=== PATIENT | male | born 1965 | race Caucasian/White ===

== ENCOUNTER 2016-06-04 09:57 | Emergency (ER) | payer OTHER ==
[2016-06-04] MEDS ORDERED: LORATADINE-PSEUDOEPH 5-120 MG 1 EACH TAB.ER.12H PO STA (10:37)
[2016-06-04] MEDS ORDERED: IBUPROFEN 600 MG TAB PO STA (10:37)
[2016-06-04] MEDS ORDERED: BENZONATATE 100 MG CAP PO STA (10:37)
[2016-06-04] MEDS ORDERED: Acetaminophen-Codeine 300-30mg TAB PO STA (10:37)
--- NOTE | 2016-06-04 11:03 | XR ---
EXAMINATION TYPE: XR chest 2V DATE OF EXAM: 06/04/2016 10:48 AM COMPARISON: Chest x-ray July 31, 2013 HISTORY: Cough and congestion. TECHNIQUE: Frontal and lateral views of the chest are obtained. FINDINGS: Somewhat low lung volumes are present. There is no focal air space opacity, pleural effusi on, or pneumothorax seen. The cardiac silhouette size is upper limits of normal. The osseous struc tures are intact. IMPRESSION: No suspicious focal infiltrate is present.
[2016-06-04] MEDS ORDERED: IPRATROPIUM-ALBUTEROL 3 ML NEB INHALATION STA (11:05)
[2016-06-04] MEDS ORDERED: AZITHROMYCIN 500 MG TAB PO STA (11:06)
--- NOTE | 2016-06-04 11:09 | ED ---
General Adult HPI - General Chief complaint: Upper Respiratory Infection Stated complaint: congestion Time Seen by Provider: 06/04/16 10:23 Source: patient, RN notes reviewed, old records reviewed Mode of arrival: ambulatory Limitations: no limitations - History of Present Illness Initial comments: This is a 51-year-old male the ER for evaluation. This patient presents for evaluation of cough, upper respiratory infection, patient has productive cough and congestion. Mild shortness of breath. Constant coughing fits. Patient has history of smoking, no formal diagnosis of COPD. No no prior hospitalizations for similar issues. Patient denies fever at home, cough is productive. Patient has no sick contacts or travel history. No chest - Related Data Home Medications Medication Instructions Recorded Confirmed Aspirin 81 mg PO DAILY 06/04/16 06/04/16 Atorvastatin Calcium [Lipitor] 40 mg PO DAILY 06/04/16 06/04/16 Metoprolol Succinate (ER) [Toprol 50 mg PO DAILY 06/04/16 06/04/16 Xl] Omeprazole [PriLOSEC] 20 mg PO AC-BID 06/04/16 06/04/16 Previous Rx's Medication Instructions Recorded Albuterol Sulfate [Proair Hfa] 1 - 2 puff INHALATION Q4H PRN #1 06/04/16 inhaler Azithromycin [Zithromax Z-pack] 0 mg PO DIRECTED #6 tab 06/04/16 Benzonatate [Tessalon Perles] 100 mg PO TID #30 cap 06/04/16 Allergies Allergy/AdvReac Type Severity Reaction Status Date / Time No Known Allergies Allergy Verified 06/04/16 10:05 Review of Systems ROS Statement: Those systems with pertinent positive or pertinent negative responses have been documented in the HPI. ROS Other: All systems not noted in ROS Statement are negative. Past Medical History Past Medical History: CVA/TIA, Hyperlipidemia, Hypertension History of Any Multi-Drug Resistant Organisms: None Reported Past Surgical History: No Surgical Hx Reported Past Psychological History: No Psychological Hx Reported Smoking Status: Current every day smoker Past Alcohol Use History: None Reported Past Drug Use History: None Reported General Exam Limitations: no limitations General appearance: alert, in no apparent distress Head exam: Present: atraumatic, normocephalic, normal inspection Eye exam: Present: normal appearance, PERRL, EOMI. Absent: scleral icterus, conjunctival injection, periorbital swelling ENT exam: Present: normal exam, mucous membranes moist Neck exam: Present: normal inspection. Absent: tenderness, meningismus, lymphadenopathy Respiratory exam: Present: normal lung sounds bilaterally. Absent: respiratory distress, wheezes, rales, rhonchi, stridor Cardiovascular Exam: Present: regular rate, normal rhythm, normal heart sounds. Absent: systolic murmur, diastolic murmur, rubs, gallop, clicks GI/Abdominal exam: Present: soft, normal bowel sounds. Absent: distended, tenderness, guarding, rebound, rigid Extremities exam: Present: normal inspection, full ROM, normal capillary refill. Absent: tenderness, pedal edema, joint swelling, calf tenderness Back exam: Present: normal inspection Neurological exam: Present: alert, oriented X3, CN II-XII intact Psychiatric exam: Present: normal affect, normal mood Skin exam: Present: warm, dry, intact, normal color. Absent: rash Course Vital Signs 06/04/16 09:58 Temperature 97.7 F Pulse Rate 75 Respiratory 20 Rate Blood Pressure 146/86 O2 Sat by Pulse 99 Oximetry - Reevaluation(s) Reevaluation #1: 06/04/16 11:07 Patient's symptoms. Improved with control Reevaluation #2: 06/04/16 11:08 Patient is in no respiratory or respiratory distress Medical Decision Making - Medical Decision Making Male year with cough and congestion, upper respiratory infection and bronchitis. Patient given a breathing treatment, symptom control emergency room , feeling better okay for discharge home - Radiology Data Radiology results: report reviewed (Chest x-ray two-view is negative for pneumonia), image reviewed Disposition Clinical Impression: Sinusitis, Upper respiratory infection, Asthmatic bronchitis Disposition: HOME SELF-CARE Condition: Good Instructions: Upper Respiratory Infection (ED), Acute Bronchitis (ED) Prescriptions: Albuterol Sulfate [Proair Hfa] 1 - 2 puff INHALATION Q4H PRN #1 inhaler PRN Reason: Shortness Of Breath Azithromycin [Zithromax Z-pack] 0 mg PO DIRECTED #6 tab Benzonatate [Tessalon Perles] 100 mg PO TID #30 cap Referrals: Justin Stein DO [Primary Care Provider] - 1-2 days
[2016-06-04 11:36] VITALS: BP 130/87; PULSE 68; RESP 18; TEMP 98
== END 2016-06-04 11:36 | disposition home or self-care (01) ==
LOC: EC 09:57
DX: J32.9 Chronic sinusitis, unspecified (principal); J45.909 Unspecified asthma, uncomplicated; J06.9 Acute upper respiratory infection, unspecified; I10 Essential (primary) hypertension; E78.5 Hyperlipidemia, unspecified; Z79.82 Long term (current) use of aspirin; Z79.899 Other long term (current) drug therapy; Z86.73 Personal history of transient ischemic attack (TIA), and cerebral infarction without residual deficits; F17.200 Nicotine dependence, unspecified, uncomplicated
CPT/HCPCS: 71020; 94640; 99284

== ENCOUNTER 2016-07-31 17:00 | Emergency (ER) | payer OTHER ==
[2016-07-31 17:16] VITALS: BP 143/97; PULSE 68; RESP 18; TEMP 98.2
[2016-07-31] MEDS ORDERED: TOBRAMYCIN 0.3% OPHTH DROPS 5 ML BTL LEFT EYE STA (17:22)
[2016-07-31] MEDS ORDERED: PROPARACAINE 0.5% OPHTH DROPS 15 ML BTL LEFT EYE STA (17:22)
--- NOTE | 2016-07-31 17:23 | ED ---
Eye Problem HPI - General Chief complaint: Eye Problems Stated complaint: Foreign Body-Left eye Time Seen by Provider: 07/31/16 17:12 Source: patient, RN notes reviewed Mode of arrival: ambulatory Limitations: no limitations - History of Present Illness Initial comments: 51-year-old male presents emergency Department chief complaint left eye irritation. Patient states that he felt something got his eyelid last night while working. 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 Patient states that he worked today and fell is still irritated. He did rinse his eye I'll try to get out any foreign body though he did not see one. Patient's tetanus is up-to- date last 5 years. Patient has no visual changes. Denies any blurred vision. Patient states his eyes is irritated, mild tearing. - Related Data Home Medications Medication Instructions Recorded Confirmed Aspirin 81 mg PO DAILY 06/04/16 06/04/16 Atorvastatin Calcium [Lipitor] 40 mg PO DAILY 06/04/16 06/04/16 Metoprolol Succinate (ER) [Toprol 50 mg PO DAILY 06/04/16 06/04/16 Xl] Omeprazole [PriLOSEC] 20 mg PO AC-BID 06/04/16 06/04/16 Previous Rx's Medication Instructions Recorded Acetaminophen with Codeine 1 tab PO Q4H PRN #20 tab 06/04/16 [Tylenol w/codeine #3] Albuterol Sulfate [Proair Hfa] 1 - 2 puff INHALATION Q4H PRN #1 06/04/16 inhaler Azithromycin [Zithromax Z-pack] 0 mg PO DIRECTED #6 tab 06/04/16 Benzonatate [Tessalon Perles] 100 mg PO TID #30 cap 06/04/16 Tobramycin [Tobrex 0.3% Ophth Soln] 1 drop LEFT EYE Q4HR #5 ml 07/31/16 Allergies Allergy/AdvReac Type Severity Reaction Status Date / Time No Known Allergies Allergy Verified 07/31/16 17:16 Review of Systems ROS Statement: Those systems with pertinent positive or pertinent negative responses have been documented in the HPI. ROS Other: All systems not noted in ROS Statement are negative. Past Medical History Past Medical History: CVA/TIA, Hyperlipidemia, Hypertension History of Any Multi-Drug Resistant Organisms: None Reported Past Surgical History: No Surgical Hx Reported Past Psychological History: No Psychological Hx Reported Smoking Status: Current every day smoker Past Alcohol Use History: None Reported Past Drug Use History: None Reported General Exam Limitations: no limitations General appearance: alert, in no apparent distress Head exam: Present: atraumatic, normocephalic, normal inspection Eye exam: Present: PERRL, EOMI, conjunctival injection. Absent: normal appearance, scleral icterus, periorbital swelling Pupils: Present: other (Foreseen dye and was limper used to evaluate the left eye there is a small corneal abrasion in the central region there is no foreign body noted patient had full relief of pain with proparacaine drops) ENT exam: Present: normal exam, normal oropharynx, mucous membranes moist, TM's normal bilaterally, normal external ear exam Neck exam: Present: normal inspection, full ROM. Absent: tenderness, meningismus, lymphadenopathy Respiratory exam: Present: normal lung sounds bilaterally. Absent: respiratory distress, wheezes, rales, rhonchi, stridor Cardiovascular Exam: Present: regular rate, normal rhythm, normal heart sounds. Absent: systolic murmur, diastolic murmur, rubs, gallop, clicks Neurological exam: Present: alert Skin exam: Present: warm, dry, intact, normal color. Absent: rash Course Vital Signs 07/31/16 17:15 Temperature 98.2 F Pulse Rate 68 Respiratory 18 Rate Blood Pressure 143/97 O2 Sat by Pulse 95 Oximetry Medical Decision Making - Medical Decision Making 51-year-old male presented for left eye irritation. Patient has a corneal abrasion. There is no foreign body noted. Patient will be given Tobrex eyedrops to go home with every 4 hours. Return parameters were discussed. Disposition Clinical Impression: Corneal abrasion Disposition: HOME SELF-CARE Condition: Stable Instructions: Corneal Abrasion (ED) Additional Instructions: Please return to the Emergency Department if symptoms worsen or any other concerns. Follow-up with senior insight manager if no improvement in 48 hours. Prescriptions: Tobramycin [Tobrex 0.3% Ophth Soln] 1 drop LEFT EYE Q4HR #5 ml Referrals: Justin Stein DO [Primary Care Provider] - 1-2 days Marcial Patricia MD [STAFF PHYSICIAN] - 1-2 days Time of Disposition: 17:23
== END 2016-07-31 17:54 | disposition home or self-care (01) ==
LOC: EC 17:00
DX: S05.02XA Injury of conjunctiva and corneal abrasion without foreign body, left eye, initial encounter (principal); E78.5 Hyperlipidemia, unspecified; I10 Essential (primary) hypertension; F17.200 Nicotine dependence, unspecified, uncomplicated; Z86.73 Personal history of transient ischemic attack (TIA), and cerebral infarction without residual deficits; Z79.82 Long term (current) use of aspirin; Z79.899 Other long term (current) drug therapy
CPT/HCPCS: 99283

== ENCOUNTER → 2017-09-05 | Outpatient (CLI) | payer MEDICARE, OTHER ==
--- NOTE | 2017-09-05 12:56 | EST ---
EXERCISE STRESS AGE: 52 SEX: M HT: 5'7" WT: 230 PROTOCOL: Freedom Stress Test STAGE: 4 DURATION OF EXERCISE: 9:30 HEART RATE REST: 70 BLOOD PRESSURE REST: 152/96 MAXIMUM HEART RATE ACHIEVED: 149 MAXIMUM BLOOD PRESSURE: 209/99 85% MPHR: 145 100% MPHR: 170 METS: 11.1 INDICATIONS: Chest pain. CLINICAL INFORMATION: STRESS DATA: Pretesting physical examination showed a heart rate of 70, pressure is 152/96 mmHg. Baseline EKG showed sinus mechanism. The patient exercised on the treadmill according to Freedom protocol for a total of 9 minutes and 30 seconds and achieved 11.1 METS. Max heart rate was 149, which is about 87% of maximum predicted heart rate. Maximum blood pressure was 209/99 mmHg. Clinically, the patient did not have any symptoms of chest pain or discomfort and the EKG did not show any significant ST or T-wave abnormalities consistent with ischemia. CONCLUSION: 1. Excellent exercise capacity. 2. Normal EKG in response to exercise. 3. Essentially normal stress test for the patient. MMODL / KAMILAHN: [id number] /
== END | disposition home or self-care (01) ==
LOC: RADNMMAIN 10:59
PROVIDERS: ATTEND Family Medicine Addiction Medicine
DX: I63.50 Cerebral infarction due to unspecified occlusion or stenosis of unspecified cerebral artery (principal); E78.5 Hyperlipidemia, unspecified
CPT/HCPCS: 93017

== ENCOUNTER 2018-10-15 18:54 | Emergency (ER) | payer MEDICARE ==
[2018-10-15 19:07] VITALS: RESP 18
--- NOTE | 2018-10-15 19:43 | ED ---
Extremity Problem HPI - General Chief complaint: Extremity Problem,Nontraumatic Stated complaint: Left leg swelling Time Seen by Provider: 10/15/18 19:24 Source: patient Mode of arrival: ambulatory Limitations: no limitations - History of Present Illness Initial comments: Patient is a 53-year-old male presenting to the ER with complaints of left lower leg pain and swelling x 2-3 days. Patient states he has been dealing with left bursitis on the tibia tuberosity but then he started noticing pain on the lateral aspect of the lower left leg. Upon inspection patient states he noticed bruising and swelling when compared to the right side. Patient has history of DVT and PE. Patient denies recent travels or trauma to the area. 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 Patient denies fever, chills, cough, shortness of breath. No other complaints at this time. - Related Data Home Medications Medication Instructions Recorded Confirmed Aspirin 81 mg PO DAILY 06/04/16 10/15/18 Atorvastatin Calcium [Lipitor] 40 mg PO DAILY 06/04/16 10/15/18 Metoprolol Succinate (ER) [Toprol 50 mg PO DAILY 06/04/16 10/15/18 Xl] Omeprazole 40 mg PO DAILY 10/15/18 10/15/18 Allergies Allergy/AdvReac Type Severity Reaction Status Date / Time No Known Allergies Allergy Verified 10/15/18 19:37 Review of Systems ROS Statement: Those systems with pertinent positive or pertinent negative responses have been documented in the HPI. ROS Other: All systems not noted in ROS Statement are negative. Past Medical History Past Medical History: CVA/TIA, Hyperlipidemia, Hypertension History of Any Multi-Drug Resistant Organisms: None Reported Past Surgical History: No Surgical Hx Reported Past Psychological History: No Psychological Hx Reported Smoking Status: Current every day smoker Past Alcohol Use History: None Reported Past Drug Use History: None Reported General Exam - General Exam Comments Initial Comments: GENERAL: Well-appearing, well-nourished and in no acute distress. HEAD: Atraumatic, normocephalic. EYES: Pupils equal round and reactive to light, extraocular movements intact, sclera anicteric, conjunctiva are normal. ENT: TMs normal, nares patent, oropharynx clear without exudates. Moist mucous membranes. NECK: Normal range of motion, supple without lymphadenopathy or JVD. LUNGS: Breath sounds clear to auscultation bilaterally and equal. No wheezes rales or rhonchi. HEART: Regular rate and rhythm without murmurs, rubs or gallops. ABDOMEN: Soft, nontender, normoactive bowel sounds. No guarding, no rebound. No masses appreciated. : Deferred EXTREMITIES: Left lower leg has bruising and edema to the lateral aspect. Painful to the touch. No erythema. Neurovascular intact. NEUROLOGICAL: Cranial nerves II through XII grossly intact. Normal speech, normal gait. PSYCH: Normal mood, normal affect. SKIN: Warm, Dry, normal turgor, no rashes or lesions noted. Limitations: no limitations Course Vital Signs 10/15/18 19:03 Temperature 98.3 F Pulse Rate 66 Respiratory 18 Rate Blood Pressure 138/101 O2 Sat by Pulse 97 Oximetry Medical Decision Making - Medical Decision Making Patient is a 53-year-old male complaining of left lower leg pain, swelling, bruising 2-3 days. 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 Patient does not recall any trauma or injury to his left leg. Patient reports history of DVT and PE. Doppler shows no acute DVTs in the left lower extremity. Patient was counseled on lower leg contusion. Patient will be discharged. Patient will follow up with PCP if symptoms continue. Case discussed with Dr. Braga. Disposition Clinical Impression: Contusion of left leg, Pain in left lower leg Disposition: HOME SELF-CARE Condition: Stable Instructions (If sedation given, give patient instructions): Contusion in Adults (ED) Additional Instructions: Please return to the Emergency Department if symptoms worsen or any other concerns. Ice, Motrin, compression, elevation. Follow up with PCP if symptoms continue. Is patient prescribed a controlled substance at d/c from ED?: No Referrals: Justin Stein DO [Primary Care Provider] - 1-2 days
--- NOTE | 2018-10-15 20:52 | US ---
EXAMINATION TYPE: US venous doppler duplex LE LT DATE OF EXAM: 10/15/2018 8:41 PM COMPARISON: NONE CLINICAL HISTORY: Pain. Pain SIDE PERFORMED: Left TECHNIQUE: The lower extremity deep venous system is examined utilizing real time linear array sonog dani with graded compression, doppler sonography and color-flow sonography. VESSELS IMAGED: External Iliac Vein (EIV) Common Femoral Vein Deep Femoral Vein Greater Saphenous Vein * Femoral Vein Popliteal Vein Small Saphenous Vein * Proximal Calf Veins (* superficial vessels) Left Leg: Negative for DVT No evidence of DVT left leg. IMPRESSION: Normal left leg duplex venous sonogram.
[2018-10-15 21:40] VITALS: BP 140/101; PULSE 53; TEMP 98.2
== END 2018-10-15 21:40 | disposition home or self-care (01) ==
LOC: EC 18:54
DX: S80.12XA Contusion of left lower leg, initial encounter (principal); M71.58 Other bursitis, not elsewhere classified, other site; E78.5 Hyperlipidemia, unspecified; I10 Essential (primary) hypertension; F17.200 Nicotine dependence, unspecified, uncomplicated; Z79.82 Long term (current) use of aspirin; Z79.899 Other long term (current) drug therapy; Z86.73 Personal history of transient ischemic attack (TIA), and cerebral infarction without residual deficits; Z86.718 Personal history of other venous thrombosis and embolism; Z86.711 Personal history of pulmonary embolism; X50.9XXA Other and unspecified overexertion or strenuous movements or postures, initial encounter
CPT/HCPCS: 99283

== ENCOUNTER 2019-12-10 08:17 | Emergency (ER) | payer MEDICARE ==
[2019-12-10 08:24] VITALS: TEMP 98.4
[2019-12-10] MEDS ORDERED: LIDOCAINE 5% PATCH TOPICAL STA (08:36)
--- NOTE | 2019-12-10 08:39 | ED ---
General Adult HPI - General Chief complaint: Abdominal Pain Stated complaint: Abd Pain Time Seen by Provider: 12/10/19 08:26 Source: patient Mode of arrival: ambulatory Limitations: no limitations - History of Present Illness Initial comments: Dictation was produced using [employer] dictation software. please excuse any grammatical, word or spelling errors. This patient was cared for during a federal and state declared state of emergency secondary to Covid 19 Chief Complaint: 54-year-old male with past medical history of stroke, dyslip idemia and hypertension presents with abdominal pain. History of Present Illness: 24-year-old male who presents to us for abdominal pain. Patient came to our hospital for second opinion. Yesterday he was seen at [facility] where he had a CT of his abdomen and pelvis performed. He was diagnosed with diverticulitis at that time. He was prescribed Augmentin. Patient states that he return back to [facility] because his pain has been persistent. He seen a different ER physician there today and was told that he has a pulled muscle. He abated his who urged patient to come to [facility] for another opinion. Patient has left lower quadrant abdominal pain. He states his pain is exacerbated with movements. The movements that make his pain worse is bending forward at the hips and turning in certain positions. Patient denies any nausea vomiting or abdominal pain. Denies any diarrhea. The ROS documented in this emergency department record has been reviewed and co nfirmed by me. Those systems with pertinent positive or negative responses have been documented in the HPI. All other systems are other negative and/or noncontributory. PHYSICAL EXAM: General Impression: Alert and oriented x3, not in acute distress HEENT: Normocephalic atraumatic, extra-ocular movements intact, pupils equal and reactive to light bilaterally, mucous membranes moist. Cardiovascular: Heart regular rate and rhythm Chest: Able to complete full sentences, no retractions, no tachypnea Abdomen: abdomen soft, tenderness to the left lower quadrant, non-distended, no organomegaly Musculoskeletal: Pulses present and equal in all extremities, no peripheral edema Motor: no focal deficits noted Neurological: CN II-XII grossly intact, no focal motor or sensory deficits noted Skin: Intact with no visualized rashes Psych: Normal affect and mood ED course: 54-year-old male presents with chief complaint of abdominal pain. As upon arrival are within acceptable limits. Some documentation was reviewed from [facility]. Patient was seen yesterday and today. There isnt much from documentation for yesterday's visit. Today's visit there was some documentation provided by the physician. patient is on a prescription for Augmentin that was provided to him yesterday. He had a CT that was done that showed moderate diverticulitis versus infarction of the omentum. Labs were finally received. Yesterday patient had CBC and metabolic panel with no acute processes. Computed tomography scan of the abdomen and pelvis was obtained. There was mild inflammatory change along the anterior margin of the left distal colon. Patient reevaluated at bedside and found to be stable medical condition. His labs are unremarkable. No leukocytosis. no gap acidosis. All the labs are within normal limits. Patient was counseled on with plan of action is. Patient told to take [id number] analgesia. He does not want any narcotics because he is a recovering addict. Patient told to follow-up with his primary care physician. - Related Data Home Medications Medication Instructions Recorded Confirmed Aspirin 81 mg PO DAILY 06/04/16 10/15/18 Atorvastatin Calcium [Lipitor] 40 mg PO DAILY 06/04/16 10/15/18 Metoprolol Succinate (ER) [Toprol 50 mg PO DAILY 06/04/16 10/15/18 Xl] Omeprazole 40 mg PO DAILY 10/15/18 10/15/18 Allergies Allergy/AdvReac Type Severity Reaction Status Date / Time No Known Allergies Allergy Verified 12/10/19 08:24 Review of Systems ROS Statement: Those systems with pertinent positive or pertinent negative responses have been documented in the HPI. ROS Other: All systems not noted in ROS Statement are negative. Past Medical History Past Medical History: CVA/TIA, Hyperlipidemia, Hypertension History of Any Multi-Drug Resistant Organisms: None Reported Past Surgical History: No Surgical Hx Reported Past Psychological History: No Psychological Hx Reported Smoking Status: Current every day smoker Past Alcohol Use History: None Reported Past Drug Use History: None Reported General Exam Limitations: no limitations Course Vital Signs 12/10/19 08:21 Temperature 98.4 F Pulse Rate 64 Respiratory 18 Rate Blood Pressure 164/109 O2 Sat by Pulse 97 Oximetry Medical Decision Making - Lab Data Result diagrams: 12/10/19 08:37 12/10/19 08:37 Lab Results 12/10/19 12/10/19 Range/Units 08:37 08:37 WBC 7.3 (3.8-10.6) k/uL RBC 5.09 (4.30-5.90) m/uL Hgb 15.5 (13.0-17.5) gm/dL Hct 46.3 (39.0-53.0) % MCV 91.0 (80.0-100.0) fL MCH 30.4 (25.0-35.0) pg MCHC 33.4 (31.0-37.0) g/dL RDW 12.9 (11.5-15.5) % Plt Count 166 (150-450) k/uL Neutrophils % 72 % Lymphocytes % 19 % Monocytes % 6 % Eosinophils % 1 % Basophils % 0 % Neutrophils # 5.3 (1.3-7.7) k/uL Lymphocytes # 1.4 (1.0-4.8) k/uL Monocytes # 0.4 (0-1.0) k/uL Eosinophils # 0.1 (0-0.7) k/uL Basophils # 0.0 (0-0.2) k/uL Sodium 138 (137-145) mmol/L Potassium 4.5 (3.5-5.1) mmol/L Chloride 105 (98-107) mmol/L Carbon Dioxide 26 (22-30) mmol/L Anion Gap 7 mmol/L BUN 15 (9-20) mg/dL Creatinine 0.85 (0.66-1.25) mg/dL Est GFR (CKD-EPI)AfAm >90 (>60 ml/min/1.73 sqM) Est GFR (CKD-EPI)NonAf >90 (>60 ml/min/1.73 sqM) Glucose 97 (74-99) mg/dL Calcium 9.2 (8.4-10.2) mg/dL Total Bilirubin 0.7 (0.2-1.3) mg/dL AST 25 (17-59) U/L ALT 29 (4-49) U/L Alkaline Phosphatase 100 (38-126) U/L Total Protein 6.7 (6.3-8.2) g/dL Albumin 4.4 (3.5-5.0) g/dL Lipase 60 (23-300) U/L Disposition Clinical Impression: Abdominal pain Disposition: HOME SELF-CARE Condition: Good Instructions (If sedation given, give patient instructions): Abdominal Pain (ED) Additional Instructions: Take 400mg of Motrin with 1000 mg of Tylenol in combination 3 times a day as needed for pain. these are [id number] medications that she could obtain from your local arm [facility] Is patient prescribed a controlled substance at d/c from ED?: No Referrals: Justin Stein DO [Primary Care Provider] - 1-2 days Time of Disposition: 09:20
[2019-12-10 08:54] LABS: Basophils % (A) 0 %; Eosinophils # (A) 0.1 k/uL (0-0.7); Eosinophils % (A) 1 %; HCT 46.3 % (39.0-53.0); HGB 15.5 gm/dL (13.0-17.5); Lymphocytes # (A) 1.4 k/uL (1.0-4.8); Lymphocytes % (A) 19 %; MCH 30.4 pg (25.0-35.0); MCHC 33.4 g/dL (31.0-37.0); Mean Platelet Volume 8.2; Monocytes # (A) 0.4 k/uL (0-1.0); Monocytes % (A) 6 %; Neutrophils # (A) 5.3 k/uL (1.3-7.7); Neutrophils % (A) 72 %; Platelet Count 166 k/uL (150-450); RBC 5.09 m/uL (4.30-5.90); RDW 12.9 % (11.5-15.5); WBC 7.3 k/uL (3.8-10.6)
[2019-12-10 09:05] LABS: ALT 29 U/L (4-49); AST 25 U/L (17-59); African American GFR (CKD) >90 (>60 ml/min/1.73 sqM); Albumin 4.4 g/dL (3.5-5.0); Alkaline Phosphatase 100 U/L (38-126); Anion Gap 7 mmol/L; Blood Urea Nitrogen 15 mg/dL (9-20); Calcium 9.2 mg/dL (8.4-10.2); Carbon Dioxide 26 mmol/L (22-30); Chloride 105 mmol/L (98-107); Glucose 97 mg/dL (74-99); Non-African American GFR(CKD) >90 (>60 ml/min/1.73 sqM); Potassium 4.5 mmol/L (3.5-5.1); Sodium 138 mmol/L (137-145); Total Bilirubin 0.7 mg/dL (0.2-1.3); Total Protein 6.7 g/dL (6.3-8.2)
[2019-12-10 09:29] VITALS: BP 133/86; PULSE 82; RESP 16
== END 2019-12-10 09:28 | disposition home or self-care (01) ==
LOC: EC 08:17
DX: R10.32 Left lower quadrant pain (principal); F17.200 Nicotine dependence, unspecified, uncomplicated; E78.5 Hyperlipidemia, unspecified; I10 Essential (primary) hypertension; Z79.899 Other long term (current) drug therapy; Z86.73 Personal history of transient ischemic attack (TIA), and cerebral infarction without residual deficits
CPT/HCPCS: 36415; 80053; 83690; 85025; 99284

== ENCOUNTER 2020-03-14 08:04 | Day surgery (SDC) | payer MEDICARE, OTHER ==
[~2020-03-14 08:04] MED LIST: LACTATED RINGERS 1,000 ML IV SCH; LIDOCAINE 1% (10MG/ML) FOR IV START INTRADERMA PRN
[2020-03-14] MEDS ORDERED: LACTATED RINGERS 1,000 ML IV ONE (08:23)
[2020-03-14 08:24] VITALS: TEMP 97.8
[2020-03-14] MEDS ORDERED: LIDOCAINE 1% INJ 10MG/ML (20 ML MDV) ONE (09:31)
[2020-03-14] MEDS ORDERED: PROPOFOL 10 MG/ML 20 ML VIAL IV ONE (09:31)
--- NOTE | 2020-03-14 09:57 | P.PCN ---
Date of Procedure: 03/14/20 Description of Procedure: BRIEF HISTORY: Patient is a 54-year-old male presenting for outpatient colonoscopy for screening for malignant neoplasm of the colon. No prior colonoscopy. No family history of colon cancer. He denies any change in bowel habits. PROCEDURE PERFORMED: Colonoscopy with polypectomy. PREOPERATIVE DIAGNOSIS: Screening for malignant neoplasm of the colon, no prior colonoscopy. ESTIMATED BLOOD LOSS: Minimal. IV sedation per Anesthesia. PROCEDURE: After informed consent was obtained, the patient, was brought into the endoscopy unit. IV sedation was administered by Anesthesia under continuous monitoring. Digital rectal examination was normal. Initially the Olympus CF-190 flexible video colonoscope was then inserted in the rectum, gradually advanced into the cecum without any difficulty. Careful examination was performed as the scope was gradually being withdrawn. Ileocecal valve and the appendiceal orifice were visualized and appeared normal. Prep was excellent. Mucosa of the cecum, ascending colon, transverse colon, descending colon, sigmoid colon, and rectum appeared normal. A pedunculated 6 mm transverse colon polyp was removed with cold snare polypectomy. A few scattered diverticula noted in the sigmoid colon. Retroflexion was performed in the rectum and no lesions were seen. The patient tolerated the procedure well. IMPRESSION: Transverse colon polyp removed with cold snare polypectomy. Mild sigmoid diverticulosis. RECOMMENDATIONS: Findings of this examination were discussed with the patient and his family. Okay to resume diet. Okay to resume medication. Recommend repeat colonoscopy in 7 years for history of colon polyps, pending pathology from polypectomy.
[2020-03-14 09:58] VITALS: RESP 16
[2020-03-14 10:10] VITALS: BP 135/93; PULSE 58
== END 2020-03-14 10:29 | disposition home or self-care (01) ==
LOC: ORWHC2ENDO 08:04
PROVIDERS: ATTEND Internal Medicine
DX: Z12.11 Encounter for screening for malignant neoplasm of colon (principal); D12.3 Benign neoplasm of transverse colon; K57.30 Diverticulosis of large intestine without perforation or abscess without bleeding; I10 Essential (primary) hypertension; E78.5 Hyperlipidemia, unspecified; K21.9 Gastro-esophageal reflux disease without esophagitis; F17.210 Nicotine dependence, cigarettes, uncomplicated; Z86.73 Personal history of transient ischemic attack (TIA), and cerebral infarction without residual deficits; Z86.711 Personal history of pulmonary embolism; Z79.82 Long term (current) use of aspirin; Z79.899 Other long term (current) drug therapy; Z88.1 Allergy status to other antibiotic agents
CPT/HCPCS: 88305; 45385; J2001; J2704

== ENCOUNTER 2020-09-27 07:37 | Observation (INO) | payer MEDICARE, OTHER ==
[2020-09-27] MEDS ORDERED: IV FLUID CONTINUATION 900 ML IV ONE (07:40)
[2020-09-27] MEDS ORDERED: MIDAZOLAM 2 MG/2 ML VIAL IV ONE (07:58)
[2020-09-27] MEDS ORDERED: TICAGRELOR 90 MG TAB PO ONE (08:01)
[2020-09-27] MEDS ORDERED: LIDOCAINE 1% INJ 10MG/ML (20 ML MDV) SQ ONE (08:02)
[2020-09-27] MEDS ORDERED: VERAPAMIL SYRINGE (5 MG/10 ML) INTRAARTER ONE (08:03)
[2020-09-27] MEDS ORDERED: BIVALIRUDIN 250 MG in SODIUM CHLORIDE 0.9% 50 ML IV ONE (08:12)
[2020-09-27] MEDS ORDERED: BIVALIRUDIN BOLUS 250 MG/50 ML IV ONE (08:12)
[2020-09-27] MEDS ORDERED: NITROGLYCERIN 1000MCG/10ML SYRINGE INTRACORON ONE (08:22)
[2020-09-27] MEDS ORDERED: IOPAMIDOL-370 100ML BTL INJ ONE (08:25)
[2020-09-27] MEDS: SODIUM CHLORIDE 0.9% 1,000 ML IV SCH (08:50)
[2020-09-27] MEDS: METOPROLOL TARTRATE 12.5 MG TAB PO SCH (12:03)
[2020-09-27] MEDS: ATORVASTATIN 80 MG TAB PO SCH (12:03)
[2020-09-27] MEDS: LOSARTAN 50 MG TAB PO SCH (12:03)
--- NOTE | 2020-09-27 12:03 | ECHOF ---
Referral Reason:r/o valve dx MEASUREMENTS -------- HEIGHT: 172.7 cm WEIGHT: 105.7 kg BP: 147/92 RVIDd: 3.9 cm (< 3.3) IVSd: 1.5 cm (0.6 - 1.1) LVIDd: 5.1 cm (3.9 - 5.3) LVPWd: 1.8 cm (0.6 - 1.1) IVSs: 2.0 cm LVIDs: 2.6 cm LVPWs: 2.2 cm Ao Diam: 3.8 cm (2.0 - 3.7) AV Cusp: 2.2 cm (1.5 - 2.6) LA Diam: 3.2 cm (2.7 - 3.8) MV EXCURSION: 15.568 mm (> 18.000) MV EF SLOPE: 63 mm/s (70 - 150) EPSS: 0.8 cm MV E Kamari: 0.82 m/s MV DecT: 293 ms MV A Kamari: 0.90 m/s MV E/A Ratio: 0.91 RAP: 5.00 mmHg RVSP: 15.30 mmHg FINDINGS -------- Sinus rhythm. This was a technically adequate study. Patient is post cardiac catheterization and cannot be in left lateral position. The left ventricular size is normal. There is moderate concentric left ventricular hypertrophy. O verall left ventricular systolic function is low-normal with, an EF between 50 - 55 %. The right ventricle is moderately enlarged. The left atrial size is normal. The right atrium was not well visualized. Interatrial and interventricular septum intact. There is no evidence of aortic regurgitation. There is no evidence of aortic stenosis. No mitral regurgitation. Mild tricuspid regurgitation present. There is no evidence of pulmonary hypertension. The right v entricular systolic pressure, as measured by Doppler, is 15.30mmHg. There is no pulmonic regurgitation present. The aortic root size is normal. IVC Not well visulized. There is no pericardial effusion. CONCLUSIONS -------- 1. The left ventricular size is normal. 2. There is moderate concentric left ventricular hypertrophy. 3. Overall left ventricular systolic function is low-normal with, an EF between 50 - 55 %. 4. The right ventricle is moderately enlarged. 5. Mild tricuspid regurgitation present. FINISHING PAN OPERATOR: Samreen Heaton, [facility]
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
--- NOTE | 2020-09-27 20:14 | PTCA ---
PERCUTANEOUSTRANS CORORONARY ANGIOGRAPHY DATE OF SERVICE: 09/27/2020 PROCEDURE: PTCA and stenting of circumflex marginal coronary artery. PERFORMED BY: Dr. Ovidio Dumont. Moderate conscious sedation time was 30 minutes. Patient was administered Versed. His oxygen saturation, hemodynamics, and EKG were monitored closely. CLINICAL INFORMATION: Mr. Blake Lemos is a 55-year-old gentleman with a history of previous cocaine abuse. He has hypertension, hyperlipidemia, smoking, came in to [facility] with chest pain and had troponin elevation suggestive of non-ST elevation CT. Cardiac cath revealed that he had a 70% proximal RCA lesion dominant and a 99% stenosis involving the first obtuse marginal branch of circumflex which was the culprit lesion. LAD was relatively disease free. Filling pressures were slightly elevated at 14 to 15 mmHg. He was advised PCI and was transferred to [facility] with a right radial sheath sutured. PROCEDURE NOTE: The risks, benefits, options related to the procedure were explained in detail to the patient. I also spoke to his . They understood and wished to proceed. PROCEDURE NOTE: The existing 6-Norwegian introducer was used to perform procedure. I used a left XB guide catheter of 3.5 curve. With this I cannulated the left coronary artery. A run-through wire was used to cross the lesion. Predilatation was performed with a 2.5 caliber, 12 mm Trek balloon. I then deployed a 15 mm long 3.5 caliber Xience stent at 12 atmospheres. Patient had no chest discomfort and no significant EKG changes. Excellent angiographic result without complication was achieved. He received Angiomax bolus and infusion as per protocol. He received 180 mg of Brilinta. Excellent angiographic result was achieved. The sheath was taken out and TR band applied as per protocol with good saturation of the fingers of the right hand of 98%. Results were discussed with the patient and . I expect him to be discharged tomorrow if he remains stable. Excellent angiographic result without complication was achieved of the obtuse marginal branch of circumflex. I will perform stenting of RCA in a separate setting in the next couple of weeks. Advised risk factor modification. He will be discharged tomorrow. Results were discussed with the patient and his . MMODL / IJN: [id number] /
[2020-09-28] MEDS: SODIUM CHLORIDE 0.9% 1,000 ML IV SCH (05:06)
[2020-09-28] MEDS ORDERED: METOPROLOL TARTRATE 12.5 MG TAB PO SCH (06:00)
[2020-09-28] MEDS: METOPROLOL TARTRATE 12.5 MG TAB PO SCH (06:36)
[2020-09-28] MEDS: LOSARTAN 50 MG TAB PO SCH (08:38)
[2020-09-28] MEDS: ATORVASTATIN 80 MG TAB PO SCH (08:39)
[2020-09-28] MEDS ORDERED: ATORVASTATIN 80 MG TAB PO SCH (09:00)
[2020-09-28] MEDS ORDERED: TICAGRELOR 90 MG TAB PO SCH (09:00)
[2020-09-28] MEDS ORDERED: LOSARTAN 50 MG TAB PO SCH (09:00)
[2020-09-28] MEDS ORDERED: ASPIRIN 81 MG PO SCH (09:00)
[2020-09-28 11:08] VITALS: BP 149/91; PULSE 52; RESP 18; TEMP 97.5
--- NOTE | 2020-09-28 11:54 | P.DS ---
Providers Date of admission: 09/27/20 07:43 Expected date of discharge: 09/28/20 Attending physician: Rosa Maria Garner MD Consults: 09/28/20 10:46 Consult Physician Routine Consulting Provider: Jose Dumnot Consult Reason/Comments: NSTEMI, heart cath w/ stent on 09/27 - discharge clearance Do you want consulting provider notified?: Yes Primary care physician: Stated None Hospital Course: HISTORY OF PRESENT ILLNESS This is a 55-year-old male patient of Dr. Stein with past medical history of gastroesophageal reflux disease, hyperlipidemia, hypertension, history of pulmonary embolism in 2006, stroke involving the right side in 2013, active tobacco use, remote history of alcohol abuse. Patient initially presented to [facility] with acute substernal chest pressure on September 26. Pain started at 4:30 in the morning while he was sleeping with radiation of pain to his jaw. He did have pain the day before and his jaw and took Tylenol but to bed. He started having chest pressure and was concerned and his was concerned about cardiac etiology and brought the patient into the hospital. EKG was concerning for ST changes involving lead 1 and lead 2. Initial troponin was 0.543, cardiology echocardiogram, carotid Doppler and repeat troponins were ordered. Patient was diagnosed with a non-ST elevated myocardial infarction. He underwent heart catheterization which found a 99% blockage in the circumflex and 70-75% in the RCA. Patient was subsequently transferred to [facility] for stenting of the circumflex. Patient is seen today in the standard stay unit. Patient denies having any chest pain at this time. He states he has not had any pain since yesterday morning. 09/28: Repeat blood work reveals normal CBC and BMP. Patient denies any chest pain, shortness of breath, lightheadedness or dizziness. Patient has been cleared by cardiology for discharge. Echocardiogram revealed EF 50-55%, moderate concentric left ventricular hypertrophy, mild tricuspid regurgitation. Patient will be discharged ASSESSMENT AND PLAN 1. Acute non-ST elevated myocardial infarction status post heart catheterization and stenting of the circumflex. 2. Hypertension. 3. Hyperlipidemia. 4. History of pulmonary embolism in 2006. 5. History of stroke involving the right side in 2013. 6. Tobacco use and dependence. 7. Remote history of alcohol abuse. DISCHARGE PLAN Home Impression and plan of care have been directed as dictated by the signing physi ester. Maureen Convery nurse practitioner acting as scribe for signing physicia Patient Condition at Discharge: Good Plan - Discharge Summary Discharge Rx Participant: No New Discharge Prescriptions: New Ticagrelor [Brilinta] 90 mg PO BID #180 tab Atorvastatin [Lipitor] 80 mg PO QAM #90 tab Metoprolol Tartrate [Lopressor] 12.5 mg PO DAILY@0600 #90 tab Losartan [Cozaar] 50 mg PO DAILY #90 tab Continue Aspirin 81 mg PO DAILY Omeprazole 40 mg PO DAILY Discontinued Metoprolol Succinate (ER) [Toprol Xl] 50 mg PO DAILY Atorvastatin Calcium [Lipitor] 40 mg PO DAILY Losartan-Hctz 50-12.5 mg [Hyzaar 50-12.5] 1 tab PO DAILY Discharge Medication List Aspirin 81 mg PO DAILY 06/04/16 [History] Omeprazole 40 mg PO DAILY 10/15/18 [History] Atorvastatin [Lipitor] 80 mg PO QAM #90 tab 09/28/20 [Rx] Losartan [Cozaar] 50 mg PO DAILY #90 tab 09/28/20 [Rx] Metoprolol Tartrate [Lopressor] 12.5 mg PO DAILY@0600 #90 tab 09/28/20 [Rx] Ticagrelor [Brilinta] 90 mg PO BID #180 tab 09/28/20 [Rx] Follow up Appointment(s)/Referral(s): Jose Dumont MD [STAFF PHYSICIAN] - 10/04/20 10:00 am Boy Bajwa MD [STAFF PHYSICIAN] - 1 Week (Per patients spouse - she will call and schedule follow up appt. ) Patient Instructions/Handouts: Heart Catheterization (DC) Activity/Diet/Wound Care/Special Instructions: Hold Lopressor if heart rate is <50. Discharge Disposition: HOME SELF-CARE
--- NOTE | 2020-09-28 11:55 | P.PN ---
Subjective Progress Note Date: 09/28/20 HISTORY OF PRESENT ILLNESS: This is a 55-year-old male who underwent cardiac catheterization yesterday with Dr. Dumont. Patient underwent PCI to the obtuse marginal branch of the circumflex. Patient was also found to have 70% lesion in the proximal RCA which will be stented in the next couple of weeks. Patient examined this morning. He is sitting up in the chair. He denies chest pain or pressure. He denies shortness of breath. Vital signs are stable. Telemetry reveals sinus mechanism. Echocardiogram completed revealed ejection fraction 50-55% and mild tricuspid regurgitation PHYSICAL EXAM: VITAL SIGNS: Reviewed. GENERAL: Well-developed in no acute distress. NECK: Supple. No JVD or thyromegaly LUNGS: Respirations even and unlabored. Lungs essentially clear to auscultation bilaterally. HEART: Regular rate and rhythm. S1 and S2 heard. EXTREMITIES: Normal range of motion. No clubbing or cyanosis. Peripheral pulses intact. No lower extremity edema. Right radial cath site with pulse present. ASSESSMENT: Non-STEMI, s/p PCI Hypertension Hyperlipidemia Nicotine dependence History of cocaine abuse PLAN: Continue current cardiac medications Continue dual antiplatelet therapy with aspirin and Brilinta Patient is stable for discharge home today from a cardiac standpoint Patient to follow up outpatient with Dr. Dumont Nurse practitioner note has been reviewed by physician. Signing provider agrees with the documented findings, assessment, and plan of care. Objective - Vital Signs Vital signs: Vital Signs Temp 97.5 F L 09/28/20 11:04 Pulse 52 L 09/28/20 11:04 Resp 18 09/28/20 11:04 BP 149/91 09/28/20 11:04 Pulse Ox 95 09/28/20 11:04 Intake & Output 09/27/20 09/28/20 09/28/20 18:59 06:59 18:59 Intake Total 1290 960 460 Output Total 400 Balance 890 960 460 Weight 106 kg 107.3 kg Intake: IV 690 Intake, IV Titration 600 Amount Sodium Chloride 0.9% 1, 600 000 ml @ 75 mls/hr IV . [id number] ANDREA Rx#:[id number] Oral 960 460 Output: Urine 400 Other: Voiding Method Toilet Toilet # Voids 1
[2020-09-28 12:09] LABS: African American GFR (CKD) >90 (>60 ml/min/1.73 sqM); Anion Gap 7 mmol/L; Basophils % (A) 0 %; Blood Urea Nitrogen 18 mg/dL (9-20); Calcium 9.4 mg/dL (8.4-10.2); Carbon Dioxide 30 mmol/L (22-30); Chloride 103 mmol/L (98-107); Eosinophils # (A) 0.1 k/uL (0-0.7); Eosinophils % (A) 1 %; Glucose 91 mg/dL (74-99); HCT 46.6 % (39.0-53.0); HGB 15.2 gm/dL (13.0-17.5); Lymphocytes # (A) 1.9 k/uL (1.0-4.8); Lymphocytes % (A) 32 %; MCH 30.2 pg (25.0-35.0); MCHC 32.6 g/dL (31.0-37.0); MCV 92.9 fL (80.0-100.0); Monocytes # (A) 0.4 k/uL (0-1.0); Monocytes % (A) 7 %; Neutrophils # (A) 3.5 k/uL (1.3-7.7); Neutrophils % (A) 59 %; Non-African American GFR(CKD) 90 (>60 ml/min/1.73 sqM); Platelet Count 163 k/uL (150-450); Potassium 4.1 mmol/L (3.5-5.1); RBC 5.01 m/uL (4.30-5.90); RDW 13.1 % (11.5-15.5); Sodium 140 mmol/L (137-145); WBC 5.9 k/uL (3.8-10.6)
== END 2020-09-28 13:28 | disposition home or self-care (01) ==
LOC: 3SCARD 07:43 → INTOOBSV 07:43 → 3SCARD 13:02 → UNDODISIN 09-28 13:28
PROVIDERS: ADMIT Internal Medicine; ATTEND Internal Medicine
DX: I21.4 Non-ST elevation (NSTEMI) myocardial infarction (principal); I11.9 Hypertensive heart disease without heart failure; I36.1 Nonrheumatic tricuspid (valve) insufficiency; E78.5 Hyperlipidemia, unspecified; K21.9 Gastro-esophageal reflux disease without esophagitis; F17.210 Nicotine dependence, cigarettes, uncomplicated; I69.951 Hemiplegia and hemiparesis following unspecified cerebrovascular disease affecting right dominant side; I69.911 Memory deficit following unspecified cerebrovascular disease; F10.11 Alcohol abuse, in remission; F14.11 Cocaine abuse, in remission; Z79.82 Long term (current) use of aspirin; Z88.1 Allergy status to other antibiotic agents; Z79.899 Other long term (current) drug therapy; Z86.711 Personal history of pulmonary embolism; Z87.01 Personal history of pneumonia (recurrent); Z81.1 Family history of alcohol abuse and dependence; Z82.49 Family history of ischemic heart disease and other diseases of the circulatory system
CPT/HCPCS: 93005; 93306; 80048; 85025; G0378 ×2; G0379; C9600; C1725; C1887; C1769; C1874; J2250; J2001; J0583; Q9967

== ENCOUNTER → 2020-10-04 | Outpatient (CLI) | payer MEDICARE, OTHER ==
[2020-10-04 19:19] LABS: HCT 45.9 % (39.6-50.0); HGB 15.8 g/dL (13.0-17.0); MCH 31.7 pg (27.0-32.0); MCHC 34.4 g/dL (32.0-37.0); MCV 92.2 fL (80.0-97.0); Mean Platelet Volume 10.9 fL (9.5-12.2); Platelet Count 196 X 10*3/uL (140-440); RBC 4.98 X 10*6/uL (4.40-5.60); RDW 12.6 % (11.5-14.5); WBC 7.12 X 10*3/uL (4.50-10.00)
[2020-10-04 22:55] LABS: African American GFR (CKD) 88.4 (60.0-200.0); Anion Gap 6.9 mmol/L (4.00-12.00); BUN/Creat Ratio 17.27 Ratio (12.00-20.00); Calcium 10.1 mg/dL (8.7-10.3); Carbon Dioxide 27.1 mmol/L (21.6-31.8); Non-African American GFR(CKD) 76.2 (60.0-200.0); Potassium 4.5 mmol/L (3.5-5.5)
== END | disposition home or self-care (01) ==
LOC: LABWHC1 11:24
PROVIDERS: ATTEND Internal Medicine Interventional Cardiology
DX: I10 Essential (primary) hypertension (principal); I25.10 Atherosclerotic heart disease of native coronary artery without angina pectoris
CPT/HCPCS: 36415; 80048; 85027

== ENCOUNTER → 2020-10-17 | Day surgery (SDC) | payer MEDICARE, OTHER ==
[2020-10-13 17:08] VITALS: BMI 36.8
[~2020-10-17] MED LIST changes: +ADENOSINE 90 MG in SODIUM CHLORIDE 0.9% 60 ML IVP ONE; +ALPRAZolam 0.25 MG TAB PO PRN; +ALPRAZolam 0.5 MG TAB PO PRN; +ASPIRIN 325 MG TAB PO STA; +ATORVASTATIN 80 MG TAB PO STA; +HEPARIN SODIUM 1,000 UN/ML (10ML VL) ONE; +IOPAMIDOL-370 100ML BTL INJ ONE; -LACTATED RINGERS 1,000 ML IV SCH; -LIDOCAINE 1% (10MG/ML) FOR IV START INTRADERMA PRN; +LIDOCAINE 1% INJ 10MG/ML (20 ML MDV) ONE; +LIDOCAINE 1% INJ 10MG/ML (20 ML MDV) SQ ONE; +MIDAZOLAM 2 MG/2 ML VIAL IV ONE; +NITROGLYCERIN 1000MCG/10ML SYRINGE INTRACORON ONE; +NITROGLYCERIN SL TABS 0.4 MG TAB SUBLINGUAL PRN; +SODIUM CHLORIDE 0.9% 1,000 ML in EMPTY BAG 1 BAG IV ONE; +VERAPAMIL 2.5 MG/ML 2 ML AMP ONE; +fentaNYL (PF) 50 MCG/ML 2 ML AMP IV ONE; +fentaNYL (PF) 50 MCG/ML 2 ML AMP ONE
[2020-10-17 10:02] VITALS: TEMP 98.2
[2020-10-17] MEDS: VERAPAMIL SYRINGE (5 MG/10 ML) INTRAARTER ONE ×2 (10:43→11:11)
[2020-10-17 12:18] VITALS: RESP 16
[2020-10-17 13:29] VITALS: BP 140/77; PULSE 54
--- NOTE | 2020-10-17 14:29 | CC ---
CARDIAC CATHETERIZATION REPORT DATE OF SERVICE: PROCEDURE: 1. Coronary angiography. 2. FFR measurement of moderate lesion in the right coronary artery. PERFORMED BY: Dr. Ovidio Dumont. SEDATION: Moderate conscious sedation time was 34 minutes. Patient was administered Versed and fentanyl. Oxygen saturation, hemodynamics and EKG were monitored closely. CLINICAL INFORMATION: Mr. Blake Lemos presented to [facility] in the last week of August with a non-ST elevation PR. He underwent stenting of a 99% stenosed circumflex marginal. At that time, he had a moderate 70% lesion in the RCA in the proximal portion and was advised to come in for a staged intervention after FFR. He was brought in for the procedure to assess the patency of circumflex marginal and then to perform PCI of RCA if FFR was significant. The risks, benefits, options, rationale were explained to the patient and . PROCEDURE NOTE: Under local anesthesia and strict aseptic precautions, a 6-Panamanian introducer was placed in the right radial artery. Using a standard right Hector catheter, I performed selective coronary angiography of the right coronary artery. Using a standard JL 3.5 catheter, I performed selective coronary angiography of the left coronary artery. This study revealed that the previously stented circumflex marginal was widely patent with excellent flow. I then used a right Hector type guide catheter to cannulate the right coronary artery. I gave 3 6500 units of heparin intravenously and patient's ACT was 253. An [employer] FFR wire was used to cross the lesion and wire was kept distally after equalizing in the proximal portion of the RCA. An IFR measurement was made and this was about 0.98. Subsequently, after adequate preparation and adenosine infusion as per protocol, FFR measurement was taken and this was 0.91. Given these normal values, I reassured the patient. No intervention is necessary and we took the sheath out and used a TR band to secure hemostasis. Patient tolerated procedure well without complications. FFR was 0.91 and therefore no intervention will be performed. Findings and details were discussed with the patient and . He will be discharged later on today and I will see him in the office in 1 week. The same medical regimen is advised. MMODL / IJN: [id number] /
== END ==
LOC: CATHCVL 09:01
PROVIDERS: ATTEND Internal Medicine Interventional Cardiology
DX: I25.10 Atherosclerotic heart disease of native coronary artery without angina pectoris (principal); Z95.5 Presence of coronary angioplasty implant and graft; I25.2 Old myocardial infarction; Z86.73 Personal history of transient ischemic attack (TIA), and cerebral infarction without residual deficits; Z79.899 Other long term (current) drug therapy; Z79.82 Long term (current) use of aspirin; Z88.8 Allergy status to other drugs, medicaments and biological substances; Z88.1 Allergy status to other antibiotic agents; I10 Essential (primary) hypertension; E78.00 Pure hypercholesterolemia, unspecified; Z86.711 Personal history of pulmonary embolism
CPT/HCPCS: 93571; 93454; 87635; C1887; C1894; C1769; J2250; J2001; J3010; J0153; J1644; Q9967

== ENCOUNTER → 2021-12-27 | Outpatient (CLI) | payer MEDICARE, OTHER ==
--- NOTE | 2021-12-27 15:55 | XR ---
EXAM TYPE: LUMBAR SPINE X RAY SERIES COMPARISON: 08/04/2015 HISTORY: Back pain TECHNIQUE: 4 views are submitted. FINDINGS: Alignment is anatomic. The pedicles are intact. The transverse processes are intact. There is no s pondylolisthesis. Anterior hypertrophic spurring at multiple levels similar to prior exam. IMPRESSION: 1. Anterior hypertrophic spurring at multiple levels similar to prior exam. If there is concern for d isc herniation or foraminal encroachment correlate with MRI as clinically warranted.
== END | disposition home or self-care (01) ==
LOC: RADXRMAIN 15:21
PROVIDERS: ATTEND Family Medicine
DX: M51.26 Other intervertebral disc displacement, lumbar region (principal)
CPT/HCPCS: 72110

== ENCOUNTER → 2022-11-07 | Outpatient (CLI) | payer MEDICARE, OTHER ==
[2022-11-07 11:17] LABS: ALT 35 U/L (10-49); AST 22 U/L (14-35); Chol/HDL Ratio 3.49 Ratio; Creatine Kinase 273 U/L (35-257); LDL Cholesterol,Calculated 72.9 mg/dL (0.0-131.0); VLDL Calculation 16.96 mg/dL (5.00-40.00)
== END | disposition home or self-care (01) ==
LOC: LABWHC1 07:47
PROVIDERS: ATTEND Nurse Practitioner
DX: I25.10 Atherosclerotic heart disease of native coronary artery without angina pectoris (principal); E78.5 Hyperlipidemia, unspecified
CPT/HCPCS: 36415; 80061; 82550; 84450; 84460

== ENCOUNTER → 2023-03-07 | Outpatient (CLI) | payer MEDICARE, OTHER ==
--- NOTE | 2023-03-07 11:18 | US ---
EXAMINATION TYPE: US venous doppler duplex UE RT DATE OF EXAM: 03/07/2023 COMPARISON: NONE CLINICAL INDICATION: Male, 57 years old with history of R60.0 LOCALIZED EDEMA; right hand swelling SIDE PERFORMED: Right Grayscale, color doppler, spectral doppler imaging performed of the deep veins of the right upper ext remity. There is normal flow, compressibility and vascular waveforms. Right Arm: Negative for DVT IMPRESSION: No deep venous thrombosis of the right upper extremity.
== END | disposition home or self-care (01) ==
LOC: RADUSWWP 10:16
PROVIDERS: ATTEND Family Medicine
DX: R60.0 Localized edema (principal)

== ENCOUNTER → 2023-08-26 | Outpatient (CLI) | payer MEDICARE, OTHER ==
--- NOTE | 2023-08-31 09:21 | XR ---
EXAMINATION TYPE: XR shoulder complete LT DATE OF EXAM: 08/26/2023 10:55 AM CLINICAL INDICATION:Male, 58 years old with history of M25.512 PAIN IN LEFT SHOULDER; [facility] COMPARISON: 08/13/2013. TECHNIQUE: XR shoulder complete LT; examined in AP, internally rotated and scapular Y projections. FINDINGS: No evidence of acute osseous pathology, joint dislocation, or soft tissue swelling. The remaining po rtions of the visualized chest are unremarkable. Mild degeneration changes of the acromion, distal c lavicle with osteophyte formation. There is osteophyte formation of the glenoid and humeral head. The re is joint space narrowing of glenohumeral joint IMPRESSION: 1. No acute osseous pathology. 2. Mild shoulder osteoarthrosis.
== END | disposition home or self-care (01) ==
LOC: RADXRMAIN 10:39
PROVIDERS: ATTEND Family Medicine
DX: M19.012 Primary osteoarthritis, left shoulder (principal)

== ENCOUNTER → 2024-06-24 | Outpatient (CLI) | payer MEDICARE, OTHER ==
--- NOTE | 2024-06-24 10:21 | XR ---
EXAMINATION TYPE: XR shoulder complete LT DATE OF EXAM: 06/24/2024 9:59 AM COMPARISON: Left shoulder x-ray August 26, 2023 CLINICAL INDICATION: Male, 59 years old with history of [id number] LEFT SHOULDER PAIN, pain TECHNIQUE: Three views of the left shoulder are obtained. FINDINGS: There is no acute fracture/dislocation evident in the left shoulder. Mild to moderate monroe rowing and spurring at the acromioclavicular joint is redemonstrated. Narrowing at the glenohumeral j oint is present. The visualized ribs are intact and unremarkable. IMPRESSION: As above. [facility], , 06/24/2024 10:19 AM
--- NOTE | 2024-06-24 10:27 | US ---
EXAMINATION TYPE: US groin LT DATE OF EXAM: 06/24/2024 COMPARISON: NONE CLINICAL INDICATION: Male, 59 years old with history of R10.2 PELVIC AND PERINEAL PAIN; Left groin di scomfort x few months. TECHNIQUE: Sonographic images taken. FINDINGS: Area of concern scanned at left groin. No prominent masses or lesions identified. No son ographic sign of hernia. No suspicious lymph nodes. Valsalva performed. IMPRESSION: Unremarkable targeted ultrasound left groin. [facility], , 06/24/2024 10:25 AM
== END | disposition home or self-care (01) ==
LOC: RADUSWWP 09:19
PROVIDERS: ATTEND Family Medicine
DX: R10.2 Pelvic and perineal pain (principal); M25.512 Pain in left shoulder